=== PATIENT | male | born 1980 | race Caucasian/White ===

== ENCOUNTER 2017-01-24 16:47 | Emergency (ER) | payer BC ==
[2017-01-24] MEDS ORDERED: Sodium Chloride 0.9% 1,000 ML IV ONE (16:59)
[2017-01-24] MEDS ORDERED: Albuterol/Ipratropium 3.0-0.5 MG/3 ML Neb Soln NEB ONE (16:59)
[2017-01-24] MEDS ORDERED: methylPREDNISolone Sodium Succinate 125 MG/2 ML SDV IVPUSH ONE (16:59)
--- NOTE | 2017-01-24 17:04 | EDM.PDOC ---
[id number] Complaint: Respiratory Problem Stated Complaint: SHORTNESS OF BREATH Time Seen by Provider: 01/24/17 17:01 Source of Information: Reports: Patient History Limitations: Reports: No Limitations - History of Present Illness INITIAL COMMENTS - FREE TEXT/NARRATIVE: History of present illness: Patient comes in indicating that he has had shortness of breath worse at night. Patient indicates he was seen before and diagnosed with bronchitis but he is using his hairline is not helping him. Patient a Seatbelt is having trouble catching his breath and he would like help. Review of systems: As per history of present illness and below otherwise all systems reviewed and negative. Past medical history: As per history of present illness and as reviewed below otherwise noncontributory. Surgical history: As per history of present illness and as reviewed below otherwise noncontributory. Social history: No reported history of drug or alcohol abuse. Family history: As per history of present illness and as reviewed below otherwise noncontributory. Physical exam: HEENT: Atraumatic, normocephalic, pupils reactive, negative for conjunctival pallor or scleral icterus, mucous membranes moist, throat clear, neck supple, nontender, trachea midline. Lungs: Breath sounds dim throughout worse on expiration but otherwise equal bilaterally, chest nontender. Heart: S1S2, regular, negative for clicks, rubs, or JVD. Abdomen: Soft, nondistended, nontender. Negative for masses or hepatosplenomegaly. Negative for costovertebral tenderness. Pelvis: Stable nontender. Genitourinary: Deferred. Rectal: Deferred. Extremities: Atraumatic, negative for cords or calf pain. Neurovascular unremarkable. Neuro: Awake, alert, oriented. Cranial nerves II through XII unremarkable. Cerebellum unremarkable. Motor and sensory unremarkable throughout. Exam nonfocal. Patient indicates that he feels that he can move air better and in fact on auscultation there is better movement status post Med-Neb treatment Diagnostics: [CBC, CMP, ] Therapeutics: [IV fluid, duo neb, solu Medrol] Impression: [Bronchitis] Plan: [Medrol dose pack continue inhaler] Definitive disposition and diagnosis as appropriate pending reevaluation and review of above. - Related Data Allergies Allergy/AdvReac Type Severity Reaction Status Date / Time No Known Allergies Allergy Verified 01/24/17 16:52 Home Meds: Home Meds Albuterol Sulfate [Ventolin Hfa] 8 gm IH ASDIRECTED 01/24/17 [History] methylPREDNISolone [Medrol] 4 mg PO DAILY #21 tab.ds.pk 01/24/17 [Rx] Past Medical History - Past Health History Medical/Surgical History: Denies Medical/Surgical History Social & Family History - Family History Family Medical History: Noncontributory - Tobacco Use Smoking Status *Q: Never Smoker - Caffeine Use Caffeine Use: Reports: None - Recreational Drug Use Recreational Drug Use: No ED ROS GENERAL - Review of Systems Review Of Systems: See Below (See history of present illness) ED EXAM, GENERAL - Physical Exam Exam: See Below (See history of present illness) Course - Vital Signs Last Recorded V/S: Last Vital Signs Temp 36.4 C 01/24/17 16:53 Pulse 71 01/24/17 19:02 Resp 18 01/24/17 19:02 BP 111/57 L 01/24/17 19:02 Pulse Ox 98 01/24/17 19:02 - Orders/Labs/Meds Orders: Active Orders 24 hr Category Date Time Status RT Aerosol Therapy [RC] ASDIRECTED Care 01/24/17 17:00 Active CXR [Chest 2V] [CR] Stat Exams 01/24/17 17:41 Taken Labs: Laboratory Tests 01/24/17 01/24/17 Range/Units 17:18 17:18 WBC 8.11 (4.0-11.0) K/uL RBC 5.09 (4.50-5.90) M/uL Hgb 15.2 (13.0-17.0) g/dL Hct 43.9 (38.0-50.0) % MCV 86.2 (80.0-98.0) fL MCH 29.9 (27.0-32.0) pg MCHC 34.6 (31.0-37.0) g/dL RDW Std Deviation 40.4 (28.0-62.0) fl RDW Coeff of Smith 13 (11.0-15.0) % Plt Count 221 (150-400) K/uL MPV 10.00 (7.40-12.00) fL Neut % (Auto) 67.0 (48.0-80.0) % Lymph % (Auto) 19.1 (16.0-40.0) % Norton % (Auto) 12.0 (0.0-15.0) % Eos % (Auto) 1.5 (0.0-7.0) % Baso % (Auto) 0.4 (0.0-1.5) % Neut # (Auto) 5.4 (1.4-5.7) K/uL Lymph # (Auto) 1.6 (0.6-2.4) K/uL Norton # (Auto) 1.0 H (0.0-0.8) K/uL Eos # (Auto) 0.1 (0.0-0.7) K/uL Baso # (Auto) 0.0 (0.0-0.1) K/uL Nucleated RBC % 0.0 /100WBC Nucleated RBCs # 0 K/uL Sodium 140 (136-146) mmol/L Potassium 4.2 (3.5-5.1) mmol/L Chloride 109 (98-110) mmol/L Carbon Dioxide 21 (21-31) mmol/L BUN 17 (6.0-23.0) mg/dL Creatinine 1.1 (0.6-1.5) mg/dL Est Cr Clr Drug Dosing 96.98 mL/min Estimated GFR (MDRD) > 60.0 ml/min Glucose 103 (60-110) mg/dL Calcium 9.1 (8.8-10.8) mg/dL Total Bilirubin 0.8 (0.1-1.5) mg/dL AST 19 (5-40) IU/L ALT 23 (8-54) IU/L Alkaline Phosphatase 51 (40-150) Total Protein 8.0 (6.0-8.0) g/dL Albumin 4.4 (3.5-5.0) g/dL Globulin 3.6 H (2.0-3.5) g/dL Albumin/Globulin Ratio 1.2 L (1.3-2.8) Meds: Medications Discontinued Medications Generic Name Dose Route Start Last Admin Trade Name Freq PRN Reason Stop Dose Admin Albuterol/Ipratropium 3 ml 01/24/17 16:59 01/24/17 17:16 Duoneb 3.0-0.5 Mg/3 Ml NEB 01/24/17 17:00 3 ml ONETIME ONE Administration Sodium Chloride 1,000 mls @ 999 mls/hr 01/24/17 16:59 01/24/17 17:24 Normal Saline IV 01/24/17 17:59 999 mls/hr STAT ONE Administration Methylprednisolone Sodium Succinate 125 mg 01/24/17 16:59 01/24/17 17:23 Solu-Medrol IVPUSH 01/24/17 17:00 125 mg ONETIME ONE Administration Departure - Departure Time of Disposition: 18:54 Disposition: Home, Self-Care 01 Condition: Good Clinical Impression: Acute bronchiolitis - Discharge Information Prescriptions: methylPREDNISolone [Medrol] 4 mg PO DAILY #21 tab.ds.pk Instructions: Acute Bronchitis, Laaz-lg-Oyxn Forms: ED Department Discharge Additional Instructions: The following information is given to patients seen in the emergency department who are being discharged to home. This information is to outline your options for follow-up care. We provide all patients seen in our emergency department with a follow-up referral. The need for follow-up, as well as the timing and circumstances, are variable depending upon the specifics of your emergency department visit. If you don't have a primary care physician on staff, we will provide you with a referral. We always advise you to contact your personal physician following an emergency department visit to inform them of the circumstance of the visit and for follow-up with them and/or the need for any referrals to a consulting specialist. The emergency department will also refer you to a specialist when appropriate. This referral assures that you have the opportunity for follow-up care with a specialist. All of these measure are taken in an effort to provide you with optimal care, which includes your follow-up. Under all circumstances we always encourage you to contact your private physician who remains a resource for coordinating your care. When calling for follow-up care, please make the office aware that this follow-up is from your recent emergency room visit. If for any reason you are refused follow-up, please contact the [facility] Emergency Department at and asked to speak to the emergency department charge nurse. Take medication as directed Follow-up with PCP 1-2 days Return to ED as needed as discussed [facility] [address] [place] [id number] <Narcisa Cox - Last Filed: 01/25/17 07:06> ED HPI GENERAL MEDICAL PROBLEM - History of Present Illness INITIAL COMMENTS - FREE TEXT/NARRATIVE: Please correct the typographical errors in the history of present illness to state that the patient's inhaler is not helping and that the patient is having trouble catching his breath.
[2017-01-24 17:50] LABS: CHLORIDE,CL 109 mmol/L (98-110); SODIUM,NA 140 mmol/L (136-146)
[2017-01-24 19:06] VITALS: BP 111/57
--- NOTE | 2017-01-25 10:48 | CR ---
EXAM DATE: 01/24/17 PATIENT'S AGE: 36 Patient: AKOSUA SO Facility: [place], [place] Site . Site : 1980 Study: XRay Chest [id number]/2/[id number] 5:59:38 PM Ordering Physician: Doctor Roldan Final Report: HISTORY: Shortness of breath. FINDINGS: PA and lateral chest radiograph demonstrates a normal cardiac silhouette. Pulmonary vasculature and karuna are normal. No lobar consolidation pleural effusion or pneumothorax is seen. The bony structures are normal for age. IMPRESSION: No acute cardiopulmonary disease. Dictated by Ama Farfan MD @ 01/24/2017 6:51:48 PM Dictated by: Ama Farfan MD @ 01/24/2017 18:51:53 (Electronic Signature) Report Signed by Proxy. MTDHeron
== END 2017-01-24 19:02 | disposition home or self-care (01) ==
LOC: MW.ED 16:47
DX: J21.9 Acute bronchiolitis, unspecified (principal); J40 Bronchitis, not specified as acute or chronic; Z79.899 Other long term (current) drug therapy
CPT/HCPCS: 36415; 71020; 80053; 85025; 94664; 96361; 96374; 99285; J2930; J7040; 99284

== ENCOUNTER 2017-11-23 01:37 | Emergency (ER) | payer BC ==
[2017-11-23 01:51] VITALS: BP 118/71
--- NOTE | 2017-11-23 01:51 | EDM.PDOC ---
ED HPI GENERAL MEDICAL PROBLEM - General Chief Complaint: General Stated Complaint: TOOTH PAIN Time Seen by Provider: 11/23/17 01:49 Source of Information: Reports: Patient History Limitations: Reports: No Limitations - History of Present Illness INITIAL COMMENTS - FREE TEXT/NARRATIVE: HISTORY AND PHYSICAL: History of present illness: 37-year-old male presenting department with chief complaint of right-sided tooth pain starting this a.m. Patient states that he woke up this morning and had some mild right-sided tooth pain. He ignored it throughout the day but then when he went to go to bed this evening the pain seemed to be getting worse and he was unable to sleep so came to emergency room for further evaluation. He has had similar pain before and plans to get the tooth removed but has been unable to see a dentist. He is originally from [facility] and is working here in [place]. He denies any fever, chills, nausea, vomiting, diarrhea, or other signs of systemic infection. He is generally healthy and takes no medications. He denies any allergies. Currently denies any chest pain, palpitations, shortness of breath, syncopal episodes, focal neurologic deficits. On exam patient has mild erythema to the gum surrounding tooth #32. Tooth #31 as well as #18 have been extracted previously. Patient is tender to tapping with tongue blade on tooth #32. Review of systems: As per history of present illness and below otherwise all systems reviewed and negative. Past medical history: As per history of present illness and as reviewed below otherwise noncontributory. Surgical history: As per history of present illness and as reviewed below otherwise noncontributory. Social history: No reported history of drug or alcohol abuse. Family history: As per history of present illness and as reviewed below otherwise noncontributory. Physical exam: HEENT: See HPI Atraumatic, normocephalic, pupils reactive, negative for conjunctival pallor or scleral icterus, mucous membranes moist, throat clear, neck supple, nontender, trachea midline. Lungs: Clear to auscultation, breath sounds equal bilaterally, chest nontender. Heart: S1S2, regular, negative for clicks, rubs, or JVD. Abdomen: Soft, nondistended, nontender. Negative for masses or hepatosplenomegaly. Negative for costovertebral tenderness. Pelvis: Stable nontender. Genitourinary: Deferred. Rectal: Deferred. Extremities: Atraumatic, negative for cords or calf pain. Neurovascular unremarkable. Neuro: Awake, alert, oriented. Cranial nerves II through XII unremarkable. Cerebellum unremarkable. Motor and sensory unremarkable throughout. Exam nonfocal. Diagnostics: [] Therapeutics: Dental balls, clindamycin Impression: Dental abscess Plan: Patient was given dental balls with good relief of his pain. He was discharged with a prescription for clindamycin 600 mg 1 followed by 300 mg 4 times a day for 10 days. A list of local dentists was provided to the patient and he was instructed to call and make an appointment for further management. Patient was instructed to return to emergency department if he had any new or worsening symptoms. Right Face Pain Score (Numeric/FACES): 10 - Related Data Allergies Allergy/AdvReac Type Severity Reaction Status Date / Time No Known Allergies Allergy Verified 01/24/17 16:52 Home Meds: Home Meds Montelukast [Singulair] 10 mg PO DAILY 11/23/17 [History] Past Medical History - Past Health History Medical/Surgical History: Denies Medical/Surgical History Social & Family History - Family History Family Medical History: Noncontributory - Caffeine Use Caffeine Use: Reports: None ED ROS GENERAL - Review of Systems Review Of Systems: See Below ED EXAM, GENERAL - Physical Exam Exam: See Below Course - Vital Signs Last Recorded V/S: Last Vital Signs Temp 96.4 F 11/23/17 01:46 Pulse 69 11/23/17 01:46 Resp 18 11/23/17 01:46 BP 118/71 11/23/17 01:46 Pulse Ox 97 11/23/17 01:46 - Orders/Labs/Meds Meds: Medications Discontinued Medications Generic Name Dose Route Start Last Admin Trade Name Freq PRN Reason Stop Dose Admin Benzocaine 2 each 11/23/17 01:59 11/23/17 02:04 Hurricaine One 20% MUCMEM 11/23/17 02:00 2 each ONETIME ONE Administration Clindamycin HCl 600 mg 11/23/17 02:06 Cleocin PO 11/23/17 02:07 ONETIME ONE Lidocaine HCl 15 ml 11/23/17 01:59 11/23/17 02:04 Xylocaine 2% Viscous PO 11/23/17 02:00 15 ml ONETIME ONE Administration Departure - Departure Time of Disposition: 02:06 Disposition: Home, Self-Care 01 Condition: Good Clinical Impression: Dental abscess - Discharge Information Referrals: PCP,None [Primary Care Provider] - Forms: ED Department Discharge Additional Instructions: My general discharge The following information is given to patients seen in the emergency department who are being discharged to home. This information is to outline your options for follow-up care. We provide all patients seen in our emergency department with a follow-up referral. The need for follow-up, as well as the timing and circumstances, are variable depending upon the specifics of your emergency department visit. If you don't have a primary care physician on staff, we will provide you with a referral. We always advise you to contact your personal physician following an emergency department visit to inform them of the circumstance of the visit and for follow-up with them and/or the need for any referrals to a consulting specialist. The emergency department will also refer you to a specialist when appropriate. This referral assures that you have the opportunity for follow-up care with a specialist. All of these measure are taken in an effort to provide you with optimal care, which includes your follow-up. Under all circumstances we always encourage you to contact your private physician who remains a resource for coordinating your care. When calling for follow-up care, please make the office aware that this follow-up is from your recent emergency room visit. If for any reason you are refused follow-up, please contact the [facility] Emergency Department at and asked to speak to the emergency department charge nurse. [facility] [address] [place] [id number] [id number] See attached numbers for dentists for further evaluation. Take antibiotics as prescribed. Return to emergency department if any new or worsening symptoms.
[2017-11-23] MEDS ORDERED: Lidocaine 2% Viscous Solution 15 ML Cup PO ONE (01:59)
[2017-11-23] MEDS ORDERED: Benzocaine 20% Topical Spray UD MUCMEM ONE (01:59)
[2017-11-23] MEDS ORDERED: Clindamycin HCl 150 MG Cap PO ONE (02:06)
== END 2017-11-23 02:20 | disposition home or self-care (01) ==
LOC: MW.ED 01:37
DX: K04.7 Periapical abscess without sinus (principal)
CPT/HCPCS: 99282; A9270